=== PATIENT | male | born 1995 | race Caucasian/White ===

== ENCOUNTER 2017-06-14 07:24 | Observation (INO) | payer SELFPAY ==
[~2017-06-14] VITALS: Ht 193 cm; Wt 72.5 kg
[2017-06-14 07:26] VITALS: BP 133/98; PULSE 99; RESP 18; TEMP 98; O2SAT 96
[2017-06-14] MEDS ORDERED: PANTOPRAZOLE INJ 80 MG in SODIUM CHLORIDE 0.9% INJ 35 ML IV ONE (07:45)
[2017-06-14] MEDS ORDERED: OCTREOTIDE INJ 500 MCG in SODIUM CHLORID 0.9% 500 ML INJ 500 ML IV SCH (07:45)
[2017-06-14] MEDS ORDERED: ONDANSETRON HCL 4 MG/2 ML VIAL IVP ONE (07:45)
[2017-06-14] MEDS ORDERED: PANTOPRAZOLE INJ 80 MG in SODIUM CHLORIDE 0.9% INJ 100 ML IV SCH (07:45)
--- NOTE | 2017-06-14 07:52 | PD ---
HPI Chief Complaint: Abdominal Pain Time Seen by Provider: 07:34 Travel History International Travel<30 days: No Contact w/Intl Traveler<30days: No Traveled to known affect area: No History of Present Illness HPI 21 y/o male presents with diffuse abdominal pain for the past couple months. He states this morning he had a large episode of vomiting dark red blood. He states he hasn't had that happen before. He states he drinks about a pint of alcohol at least 4 times a week for the past 8 years. He states that he was supposed to follow with the specialist and they wanted him to drink something to get a study but he didn't want to do it so he didn't get follow-up. He denies any other symptoms at this time other than this morning he felt like he might have had a fever. He notes he only threw up blood the one time. Quality was dark red. Patient is slow to answer questions and a poor historian so this limits significant details. PFSH Past Medical History Medical History: Denies Significant Hx Past Surgical History Other Surgery: Yes (NOSE RECONSTRUCTION) Social History Alcohol Use: Yes (1 PINT [place]OD[place] 4 X WK-DAILY) Tobacco Use: No Substance Use: Yes (THC) Allergies-Medications (Allergen,Severity, Reaction): Coded Allergies: No Known Allergies (Unverified , 06/14/17) Review of Systems ROS Limitations: Poor Historian Except as stated in HPI: all other systems reviewed are Neg Physical Exam Exam Limitations: Poor Historian Narrative GENERAL: Well-nourished, well-developed patient. SKIN: Warm and dry. HEAD: Normocephalic and atraumatic. EYES: No injection or drainage. ENT: No nasal drainage noted. NECK: Supple, trachea midline. CARDIOVASCULAR: Regular rate and rhythm RESPIRATORY: Breath sounds equal bilaterally. No accessory muscle use. GASTROINTESTINAL: Abdomen soft, non-tender, nondistended. EXTREMITIES: No edema. NEUROLOGICAL: Awake and alert. Motor and sensory grossly within normal limits. slow speech. Data Data Last Documented VS Vital Signs Date Time Temp Pulse Resp B/P (MAP) Pulse Ox O2 Delivery O2 Flow Rate FiO2 06/14/17 07:26 98.0 99 18 133/98 (110) 96 Orders Orders Complete Blood Count With Diff (06/14/17 07:34) Comprehensive Metabolic Panel (06/14/17 07:34) Lipase (06/14/17 07:34) Prothrombin Time / Inr (Pt) (06/14/17 07:34) Act Partial Throm Time (Ptt) (06/14/17 07:34) Alcohol (Ethanol) (06/14/17 07:34) Urinalysis - C+S If Indicated (06/14/17 07:34) Type And Screen (06/14/17 07:34) Ecg Monitoring (06/14/17 07:34) Iv Access Insert/Monitor (06/14/17 07:34) Oximetry (06/14/17 07:34) Ondansetron Inj (Zofran Inj) (06/14/17 07:45) Sodium Chlorid 0.9%... W/Octreotide Inj (06/14/17 07:45) Sodium Chloride 0.9... W/Pantoprazole In (06/14/17 07:45) Sodium Chloride 0.9... W/Pantoprazole In (06/14/17 07:45) Metoclopramide Inj (Reglan Inj) (06/14/17 09:15) Admit Order (Ed Use Only) (06/14/17 09:35) Labs Laboratory Tests Test 06/14/17 07:49 White Blood Count 9.4 TH/MM3 Red Blood Count 4.99 MIL/MM3 Hemoglobin 15.8 GM/DL Hematocrit 46.6 % Mean Corpuscular Volume 93.4 FL Mean Corpuscular Hemoglobin 31.7 PG Mean Corpuscular Hemoglobin Concent 33.9 % Red Cell Distribution Width 13.4 % Platelet Count 187 TH/MM3 Mean Platelet Volume 9.0 FL Neutrophils (%) (Auto) 64.6 % Lymphocytes (%) (Auto) 26.2 % Monocytes (%) (Auto) 6.1 % Eosinophils (%) (Auto) 2.6 % Basophils (%) (Auto) 0.5 % Neutrophils # (Auto) 6.1 TH/MM3 Lymphocytes # (Auto) 2.5 TH/MM3 Monocytes # (Auto) 0.6 TH/MM3 Eosinophils # (Auto) 0.2 TH/MM3 Basophils # (Auto) 0.0 TH/MM3 CBC Comment DIFF FINAL Differential Comment Prothrombin Time 11.7 SEC Prothromb Time International Ratio 1.2 RATIO Activated Partial Thromboplast Time 21.7 SEC Blood Urea Nitrogen 11 MG/DL Creatinine 1.17 MG/DL Random Glucose 83 MG/DL Total Protein 7.2 GM/DL Albumin 3.9 GM/DL Calcium Level 8.6 MG/DL Alkaline Phosphatase 79 U/L Aspartate Amino Transf (AST/SGOT) 23 U/L Alanine Aminotransferase (ALT/SGPT) 21 U/L Total Bilirubin 0.8 MG/DL Sodium Level 140 MEQ/L Potassium Level 3.9 MEQ/L Chloride Level 106 MEQ/L Carbon Dioxide Level 26.2 MEQ/L Anion Gap 8 MEQ/L Estimat Glomerular Filtration Rate 77 ML/MIN Lipase 146 U/L Ethyl Alcohol Level 37 MG/DL [facility] Medical Decision Making Medical Screen Exam Complete: Yes Emergency Medical Condition: Yes Medical Record Reviewed: Yes (pmh confirmed) Interpretation(s) CBC & BMP Diagram 06/14/17 07:49 Total Protein 7.2, Albumin 3.9, Calcium Level 8.6, Alkaline Phosphatase 79, Aspartate Amino Transf (AST/SGOT) 23, Alanine Aminotransferase (ALT/SGPT) 21, Total Bilirubin 0.8 Differential Diagnosis Gastritis, varices, ulcer, pancreatitis Narrative Course Will check blood work and dose with Zofran, Protonix, octreotide while awaiting results Labs are within normal limit, discuss with GI Patient updated and agrees to observation and understanding needs EGD Physician Communication Physician Communication dr bhandari states to place in observation and keep on protonix and octreotide resident team agrees to admit Diagnosis Primary Impression: GI bleed Qualified Codes: K92.2 - Gastrointestinal hemorrhage, unspecified Additional Impression: Abdominal pain Qualified Codes: R10.13 - Epigastric pain Admitting Information Admitting Physician Requests: Observation Sandra Cool MD Jun 14, 2017 07:52
[2017-06-14 08:04] LABS: AUTOMATED NEUTROPHIL # 6.1 TH/MM3 (1.8-7.7); BASOPHIL % 0.5 % (0.0-2.0); EOSINOPHIL # 0.2 TH/MM3 (0-0.4); EOSINOPHIL % 2.6 % (0.0-4.0); HEMATOCRIT 46.6 % (39.0-51.0); HEMOGLOBIN 15.8 GM/DL (13.0-17.0); LYMPH % 26.2 % (9.0-44.0); LYMPHOCYTE # 2.5 TH/MM3 (1.0-4.8); MEAN CELL VOLUME 93.4 FL (80.0-100.0); MEAN CORPUSCULAR HEMOGLOBIN 31.7 PG (27.0-34.0); MEAN CORPUSCULAR HGB CONC 33.9 % (32.0-36.0); MONO % 6.1 % (0.0-8.0); MONOCYTE # 0.6 TH/MM3 (0-0.9); NEUT % 64.6 % (16.0-70.0); PLATELET COUNT 187 TH/MM3 (150-450); RED BLOOD COUNT 4.99 MIL/MM3 (4.50-5.90); RED CELL DISTRIBUTION WIDTH 13.4 % (11.6-17.2); WHITE BLOOD COUNT 9.4 TH/MM3 (4.0-11.0)
[2017-06-14 08:15] LABS: INTERNATIONAL NORMALIZED RATIO 1.2 RATIO; PROTHROMBIN TIME - PATIENT 11.7 SEC (9.8-11.6)
[2017-06-14 08:20] LABS: ALBUMIN 3.9 GM/DL (3.4-5.0); ALT (GPT) 21 U/L (12-78); AST (GOT) 23 U/L (15-37); BICARBONATE 26.2 MEQ/L (21.0-32.0); BLOOD UREA NITROGEN 11 MG/DL (7-18); CALCIUM 8.6 MG/DL (8.5-10.1); CHLORIDE 106 MEQ/L (98-107); CREATININE 1.17 MG/DL (0.60-1.30); GLOMERULAR FILTRATION RATE 77 ML/MIN (>89); GLUCOSE,RANDOM 83 MG/DL (74-106); LIPASE 146 U/L (73-393); SODIUM (NA) 140 MEQ/L (136-145)
[2017-06-14 08:22] LABS: ALKALINE PHOSPHATASE 79 U/L (45-117); TOTAL BILIRUBIN ADULT 0.8 MG/DL (0.2-1.0); TOTAL PROTEIN 7.2 GM/DL (6.4-8.2)
[2017-06-14] MEDS ORDERED: METOCLOPRAMIDE HCL 10 MG/2 ML VIAL IV PUSH ONE (09:15)
--- NOTE | 2017-06-14 09:40 | PD.CONS ---
HPI History of Present Illness This is a 21 year old male who presented to ER with abd pain, n/v, hematemesis. He threw up dark red blood blood last night. Pain is in epigastric area. He has had intermittent epigastric pain for the last year. Worse after eating. Admits weekly use NSAIDs. Denies blood in stool or black tarry stool. Never had an EGD or colonoscopy. Drinks a pint liquor 4 x week. Pt is reluctant historian. [facility] Past Medical History denies Past Surgical History nose surgery hand surgery tibia repair Coded Allergies: No Known Allergies (Unverified , 06/14/17) Family History denies Social History drinks pint hard liquor 4 x week denies tobacco denies illicit drug use Review of Systems Constitutional: COMPLAINS OF: Fever (subjective) Endocrine: DENIES: Polydipsia Eyes: DENIES: Blurred vision Ears, nose, mouth, throat: DENIES: Hearing loss Respiratory: DENIES: Cough Cardiovascular: DENIES: Chest pain Gastrointestinal: COMPLAINS OF: Abdominal pain, Nausea, Vomiting, Hematemesis, DENIES: Black stools, Bloody stools Genitourinary: DENIES: Hematuria Musculoskeletal: DENIES: Joint Swelling Integumentary: DENIES: Rash Immunologic/allergic: DENIES: Eczema Neurologic: DENIES: Abnormal gait Psychiatric: DENIES: Confusion GI Exam Vitals I&O Vital Signs Date Time Temp Pulse Resp B/P (MAP) Pulse Ox O2 Delivery O2 Flow Rate FiO2 06/14/17 07:26 98.0 99 18 133/98 (110) 96 Laboratory Test 06/14/17 07:49 White Blood Count 9.4 TH/MM3 Red Blood Count 4.99 MIL/MM3 Hemoglobin 15.8 GM/DL Hematocrit 46.6 % Mean Corpuscular Volume 93.4 FL Mean Corpuscular Hemoglobin 31.7 PG Mean Corpuscular Hemoglobin Concent 33.9 % Red Cell Distribution Width 13.4 % Platelet Count 187 TH/MM3 Mean Platelet Volume 9.0 FL Neutrophils (%) (Auto) 64.6 % Lymphocytes (%) (Auto) 26.2 % Monocytes (%) (Auto) 6.1 % Eosinophils (%) (Auto) 2.6 % Basophils (%) (Auto) 0.5 % Neutrophils # (Auto) 6.1 TH/MM3 Lymphocytes # (Auto) 2.5 TH/MM3 Monocytes # (Auto) 0.6 TH/MM3 Eosinophils # (Auto) 0.2 TH/MM3 Basophils # (Auto) 0.0 TH/MM3 CBC Comment DIFF FINAL Differential Comment Prothrombin Time 11.7 SEC Prothromb Time International Ratio 1.2 RATIO Activated Partial Thromboplast Time 21.7 SEC Blood Urea Nitrogen 11 MG/DL Creatinine 1.17 MG/DL Random Glucose 83 MG/DL Total Protein 7.2 GM/DL Albumin 3.9 GM/DL Calcium Level 8.6 MG/DL Alkaline Phosphatase 79 U/L Aspartate Amino Transf (AST/SGOT) 23 U/L Alanine Aminotransferase (ALT/SGPT) 21 U/L Total Bilirubin 0.8 MG/DL Sodium Level 140 MEQ/L Potassium Level 3.9 MEQ/L Chloride Level 106 MEQ/L Carbon Dioxide Level 26.2 MEQ/L Anion Gap 8 MEQ/L Estimat Glomerular Filtration Rate 77 ML/MIN Lipase 146 U/L Ethyl Alcohol Level 37 MG/DL Physical Examination HEENT: PERRL; normocephalic; atraumatic; no jaundice. CHEST: CTA CARDIAC: RRR ABDOMEN: Soft, nondistended,mild TTP epigastrium; no hepatosplenomegaly; bowel sounds are present in all four quadrants. EXTREMITIES: No clubbing, cyanosis, or edema. SKIN: Normal; no rash; no jaundice. PARKING OFFICER: lethargic Assessment and Plan Plan ASSESSMENT - epigastric pain, nausea, hematemesis x 1 - intermittent epigastric pain worse after eating for last year, worse last night and with 1 x episode dark bloody emesis. hx significant ETOH consumption. Never had EGD or colonoscopy. HH WNL at this time on protonix gtt, octreotide PLAN - EGD today - obtain consent - NPO - monitor labs - further recs to follow This pt seen by myself and Dr Tapia and this note on her behalf Florinda Esteves Jun 14, 2017 09:40
[2017-06-14] MEDS ORDERED: SODIUM CHLOR 0.9% 1000 ML INJ 1,000 ML IV SCH (10:15)
[2017-06-14] MEDS ORDERED: SODIUM CHLORIDE 0.9% FLUSH 10 ML FLUSH IV FLUSH PRN (10:15)
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
[2017-06-14] MEDS ORDERED: ACETAMINOPHEN 325 MG TAB PO PRN (11:30)
[2017-06-14] MEDS ORDERED: ONDANSETRON HCL 4 MG/2 ML VIAL IV PUSH PRN (11:30)
[2017-06-14] MEDS ORDERED: traMADol HCL 50 MG TAB PO PRN (11:30)
[2017-06-14] MEDS ORDERED: HALOPERIDOL LACTATE 5 MG/ML AMP IM PRN (12:00)
[2017-06-14] MEDS ORDERED: LORazepam 1 MG TAB PO PRN (12:00)
[2017-06-14] MEDS ORDERED: LORazepam 2 MG TAB PO PRN (12:00)
[2017-06-14] MEDS ORDERED: LORazepam 2 MG/ML VIAL IV PUSH PRN ×4 (12:00)
[2017-06-14] MEDS ORDERED: FLUMAZENIL 0.5 MG/5 ML VIAL IV PUSH PRN (12:00)
[2017-06-14] MEDS ORDERED: LIDOCAINE HCL 1% PF 5 ML SYRINGE OTHER ONE (12:00)
[2017-06-14] MEDS ORDERED: PROPOFOL 200 MG/20 ML AMP IV ONE (12:00)
[2017-06-14 12:24] VITALS: BP 132/65; PULSE 64; RESP 17; O2SAT 99
[2017-06-14 12:45] LABS: BILIRUBIN, URINE NEG (NEG); BLOOD, URINE NEG (NEG); GLUCOSE,URINE NEG (NEG); KETONE, URINE NEG (NEG); MUCUS URINE FEW /lpf (OCC); NITRITE,URINE NEG (NEG); URINE COLOR YELLOW (YELLW/STRAW); URINE LEUKOCYTE ESTERASE NEG (NEG)
--- NOTE | 2017-06-14 15:14 | GIPROC ---
[facility] [place] [address] [facility]. [facility], [id number] EGD PROCEDURE REPORT EXAM DATE: 06/14/2017 PATIENT NAME: Johnny Florence MR #: [id number] BIRTHDATE: 1995 ATTENDING: Allison Tapia MD ORDER #: [id number] DAY WORKER: Tiffanie Bradshaw and Merrick Valdez STATUS: inpatient INDICATIONS: The patient is a 21 yr old male here for an EGD due to abdominal pain, hematemesis PROCEDURE PERFORMED: EGD w/ biopsy MEDICATIONS: Per Anesthesia and None. TOPICAL ANESTHETIC: none CONSENT: The patient understands the risks and benefits of the procedure and understands that these risks include, but are not limited to: sedation, allergic reaction, infection, perforation and/or bleeding. Alternative means of evaluation and treatment include, among others: physical exam, x-rays, and/or surgical intervention. The patient elects to proceed with this endoscopic procedure. medical equipment was checked for proper function. Hand hygiene and appropriate measures for infection prevention was taken. After the risks, benefits and alternatives of the procedure were thoroughly explained, Informed consent was verified, confirmed and timeout was successfully executed by the treatment team. The patient was anesthetized with topical anesthesia and the Pentax EG-[id number] endoscope was introduced through the mouth and advanced to the second portion of the duodenum. Retroflexed views revealed a hiatal hernia The gastroscope was then slowly withdrawn and removed. Gastritis antrum-biopsy esophagitis distal esophagus-biopsy retained food in stomach suggesting gastroparesis. ADVERSE EVENTS: There were no complications. IMPRESSIONS: 1. Gastritis antrum-biopsy esophagitis distal esophagus-biopsy retained food in stomach suggesting gastroparesis 2. Retroflexed views revealed a hiatal hernia RECOMMENDATIONS: 1. Await biopsy results. Biopsy results will not be ready for 7-10 days. If you don't hear from us in two weeks, call our office for biopsy results. 2. Anti-reflux regimen 3. Start PPI 4. Avoid NSAIDS 5. Soft diet avoid etoh , narcotics ct abdomen and pelvis gastroparesis diet if dc fu gi ok to dc home if tolerates food and ct ok PATIENT CONDITION: stable DISPOSITION: Inpatient REPEAT EXAM: Return 1 year EGD Allison Tapia MD eSigned: Allison Tapia MD 06/14/2017 3:14 PM cc: PATIENT NAME: Estelle Florencenaz Ludwig MR#: [id number]
[2017-06-14] MEDS ORDERED: DIATRIZOATE MEGLUM/DIATRIZOATE SOD 9 ML CUP PO ONE (16:00)
[2017-06-14 16:47] VITALS: BP 137/83; PULSE 65; RESP 18; TEMP 97.9; O2SAT 98
[2017-06-14 19:09] VITALS: BP 132/65; PULSE 59; RESP 18; TEMP 98; O2SAT 98
[2017-06-14] MEDS ORDERED: IOHEXOL 350 MG/ML 10 ML VIAL (for RAD DIAG) IVCONTRAST ONE (20:00)
--- NOTE | 2017-06-14 20:20 | RADRPT ---
EXAM DATE/TIME: 06/14/2017 19:44 [facility] COMPARISON: No previous studies available for comparison. INDICATIONS : Abdomen pain with hemoptysis. IV CONTRAST: 80 cc Omnipaque 350 (iohexol) IV ORAL CONTRAST: Prescribed oral contrast ingested. RADIATION DOSE: 5.42 CTDIvol (mGy) MEDICAL HISTORY : None SURGICAL HISTORY : None. ENCOUNTER: Initial ACUITY: 1 day PAIN SCALE: 5/10 LOCATION: Bilateral abdomen TECHNIQUE: Volumetric scanning of the abdomen and pelvis was performed. Using automated exposure control and ad justment of the mA and/or kV according to patient size, radiation dose was kept as low as reasonably achievable to obtain optimal diagnostic quality images. DICOM format image data is available electro nically for review and comparison. FINDINGS: LOWER LUNGS: The visualized lower lungs are clear. LIVER: Homogeneous density without lesion. There is no dilation of the biliary tree. No calcified gallston es. SPLEEN: Normal size without lesion. PANCREAS: Within normal limits. KIDNEYS: Normal in size and shape. There is no mass, stone or hydronephrosis. ADRENAL GLANDS: Within normal limits. VASCULAR: There is no aortic aneurysm. Anatomic variant retroaortic left renal vein noted. BOWEL/MESENTERY: The stomach, small bowel, and colon demonstrate no acute abnormality. There is no free intraperitone al air or fluid. The appendix is well-visualized, normal. ABDOMINAL WALL: Within normal limits. RETROPERITONEUM: There is no lymphadenopathy. BLADDER: No wall thickening or mass. REPRODUCTIVE: Within normal limits. INGUINAL: There is no lymphadenopathy or hernia. MUSCULOSKELETAL: Bones are questionably, mild diffusely sclerotic. Does this patient have sickle cell disease? CONCLUSION: No acute abnormality demonstrated. Eligio Meyers MD on June 14, 2017 at 20:15 Board Certified Radiologist. This report was verified electronically.
[2017-06-14] MEDS ORDERED: SODIUM CHLORIDE 0.9% FLUSH 10 ML FLUSH IV FLUSH SCH (21:00)
[2017-06-15] MEDS ORDERED: THIAMINE HCL 100 MG TAB PO SCH (09:00)
[2017-06-15] MEDS ORDERED: FOLIC ACID 1 MG TAB PO SCH (09:00)
[2017-06-15] MEDS ORDERED: MULTIVITAMINS/MINERALS THERAPEUTIC TAB PO SCH (09:00)
== END 2017-06-14 22:21 | disposition left against medical advice (07) ==
LOC: NEPC 07:24 → NEDA 09:36 → NEPHCDU 16:25
PROVIDERS: ADMIT Family Medicine; ATTEND Family Medicine
DX: K21.0 Gastro-esophageal reflux disease with esophagitis (principal); F10.10 Alcohol abuse, uncomplicated; F12.10 Cannabis abuse, uncomplicated; Y90.1 Blood alcohol level of 20-39 mg/100 ml; R12 Heartburn; K29.70 Gastritis, unspecified, without bleeding; K44.9 Diaphragmatic hernia without obstruction or gangrene; R04.2 Hemoptysis
CPT/HCPCS: 00731; 43239; 74177; 80053; 80307; 81001; 83690; 85025; 85610; 85730; 86850; 86900; 86901; 88305; 96361; 96365; 96368; 96375; 99285; C9113; G0378; J2354; J2405; J2765; J7030; J7040; Q9963; Q9967